=== PATIENT | male | born 1975 | race Caucasian/White ===

== ENCOUNTER 2017-10-30 09:57 | Emergency (ER) | payer OTHER ==
[~2017-10-30] VITALS: Ht 181.6 cm; Wt 91.8 kg
[2017-10-30 10:01] VITALS: Ht 181.6 cm; Wt 91.8 kg
[2017-10-30] MEDS ORDERED: XELODA500 MG PO ×2 (10:04→10:06)
[2017-10-30] MEDS ORDERED: AVASTIN (10:06)
[2017-10-30] MEDS ORDERED: NORCO 7.5/325 T1 TA1 PO (10:07)
[2017-10-30] MEDS ORDERED: CYCLOBENZAPRINE10 MG PO (10:07)
[2017-10-30] MEDS ORDERED: PHENERGAN25 M1 PO (10:08)
[2017-10-30] MEDS ORDERED: ZOFRAN4 MG PO (10:08)
[2017-10-30] MEDS ORDERED: ATIVAN1 MG PO (10:08)
[2017-10-30] MEDS ORDERED: OMEPRAZOLE20 M1 PO (10:08)
[2017-10-30 10:29] LABS: BASOPHILS 0.2 % (0-2); EOSINOPHILS 0.2 % (0-7); HEMATOCRIT 44.2 % (42.0-54.0); HEMOGLOBIN 16.1 g/dL (13.5-17.5); IMMATURE GRANULOCYTES 0.3 % (0-5); LYMPHOCYTES 22.8 % (15-50); MCH 35.1 pg (26.0-34.0); MCHC 36.4 g/dL (31.0-37.0); MCV 96.3 fL (80.0-100.0); MEAN PLATELET VOLUME 9.9 fL (7.4-10.4); MONOCYTES 7.3 % (2-11); NEUTROPHILS 69.2 % (40-80); RBC 4.59 10x6/uL (4.20-6.10); RDW 15.7 % (11.5-14.5); WBC 6.3 10x3/uL (4.8-10.8)
[2017-10-30 10:36] LABS: PLATELET COUNT 135 10x3/uL (130-400)
[2017-10-30 10:44] LABS: ALBUMIN 3.7 g/dL (3.4-5.0); ALKALINE PHOSPHATASE 78 U/L (46-116); ALT (SGPT) 81 U/L (10-68); BILIRUBIN - TOTAL 1.23 mg/dL (0.2-1.3); CALC OSMOLALITY 283 mosm/kg (275-300); CALCIUM 8.7 mg/dL (8.5-10.1); CARBON DIOXIDE 27.9 mmol/L (21.0-32.0); CHLORIDE - SERUM 108 mmol/L (98-107); CREATININE - SERUM 1.1 mg/dL (0.6-1.3); GLUCOSE 104 mg/dL (74-106); POTASSIUM - SERUM 4.2 mmol/L (3.5-5.1); PROTEIN - SERUM 6.7 g/dL (6.4-8.2); SODIUM 141 mmol/L (136-145); UREA NITROGEN 22 mg/dL (7-18); eGFR NON AFRICAN AMERICAN 78 mL/min (90-120)
[2017-10-30 11:22] LABS: APPEARANCE CLEAR (CLEAR); BILIRUBIN NEGATIVE (NEGATIVE); COLOR YELLOW (YELLOW); GLUCOSE NEGATIVE (NEGATIVE); KETONE NEGATIVE (NEGATIVE); NITRITE NEGATIVE (NEGATIVE); PROTEIN NEGATIVE (NEGATIVE)
[2017-10-30 12:49] VITALS: BP 126/79
== END 2017-10-30 12:50 | disposition home or self-care (01) ==
LOC: D.ER 09:57
PROVIDERS: Emergency Medicine
DX: R55 Syncope and collapse (principal); R53.1 Weakness; R53.83 Other fatigue; M79.1 Myalgia; C19 Malignant neoplasm of rectosigmoid junction

== ENCOUNTER 2018-04-14 13:33 | Emergency (ER) | payer OTHER ==
[~2018-04-14] VITALS: Ht 181.6 cm; Wt 96.4 kg
[~2018-04-14 13:33] MED LIST: ATIVAN1 MG PO; AVASTIN; CYCLOBENZAPRINE10 MG PO; NORCO 7.5/325 T1 TA1 PO; OMEPRAZOLE20 M1 PO; PHENERGAN25 M1 PO; XELODA500 MG PO; ZOFRAN4 MG PO
[2018-04-14 13:43] VITALS: Ht 181.6 cm; Wt 96.4 kg
[2018-04-14 14:21] LABS: BASOPHILS 0.2 % (0-2); HEMATOCRIT 45.8 % (42.0-54.0); HEMOGLOBIN 16.4 g/dL (13.5-17.5); IMMATURE GRANULOCYTES 0.2 % (0-5); LYMPHOCYTES 37.3 % (15-50); MCH 34.5 pg (26.0-34.0); MCHC 35.8 g/dL (31.0-37.0); MCV 96.4 fL (80.0-100.0); MEAN PLATELET VOLUME 10.2 fL (7.4-10.4); MONOCYTES 8.1 % (2-11); NEUTROPHILS 52.2 % (40-80); PLATELET COUNT 131 10x3/uL (130-400); RBC 4.75 10x6/uL (4.20-6.10); RDW 14.8 % (11.5-14.5); WBC 4.1 10x3/uL (4.8-10.8)
[2018-04-14 14:36] LABS: ALBUMIN 3.8 g/dL (3.4-5.0); ANION GAP 7.6 mmol/L (8-16); BILIRUBIN - TOTAL 0.94 mg/dL (0.2-1.3); CALCIUM 8.5 mg/dL (8.5-10.1); CARBON DIOXIDE 32.2 mmol/L (21.0-32.0); CREATININE - SERUM 1.3 mg/dL (0.6-1.3); POTASSIUM - SERUM 3.8 mmol/L (3.5-5.1); PROTEIN - SERUM 6.9 g/dL (6.4-8.2)
[2018-04-14] MEDS ORDERED: CHRONULAC30 ML PO (17:58)
[2018-04-14 18:26] VITALS: BP 134/96
== END 2018-04-14 18:33 | disposition home or self-care (01) ==
LOC: D.ER 13:33
PROVIDERS: Family Medicine
DX: R10.32 Left lower quadrant pain (principal); C18.9 Malignant neoplasm of colon, unspecified